=== PATIENT | female | born 1980 ===

== ENCOUNTER → 2018-10-10 | Outpatient (CLI) | payer OTHER ==
[~2018-10-10] MED LIST: NORG1TAB74 PO
== END ==
LOC: LAB 14:27
PROVIDERS: ATTEND Surgery
DX: Z02.9 Encounter for administrative examinations, unspecified (principal)

== ENCOUNTER 2018-10-26 01:49 | Day surgery (SDC) | payer OTHER ==
[~2018-10-26] VITALS: Ht 160 cm; Wt 58.1 kg
[~2018-10-26 01:49] MED LIST changes: +CHOL100059 PO; +MAGN100T PO; +MILK THISTLE PO; +PYRI100T57 PO; +ZINC50TA43 PO
[2018-10-26] MEDS ORDERED: FAMOTIDINE 20 MG TAB PO ONE (05:55)
[2018-10-26] MEDS ORDERED: ONDANSETRON 4 MG/2 ML VIAL ONE (08:00)
[2018-10-26] MEDS ORDERED: METOCLOPRAMIDE 10 MG/2 ML SDV ONE (08:00)
[2018-10-26] MEDS ORDERED: DEXAMETHASONE SOD 4 MG/ML VIAL ONE (08:00)
[2018-10-26] MEDS ORDERED: LIDOCAINE MPF 1% 5 ML VIAL ONE (08:00)
[2018-10-26] MEDS ORDERED: PROPOFOL EMUL(*) 10MG/ML 20 ML 20 ML ONE (08:00)
[2018-10-26] MEDS ORDERED: fentaNYL CITR 100 MCG/2 ML AMP ONE (08:09)
[2018-10-26 09:16] VITALS: BP 111/69
[2018-10-26] MEDS ORDERED: LIDOCAINE/SOD BICARB 8.4% SYR ID ONE (09:30)
[2018-10-26] MEDS ORDERED: ceFAZolin(*) 2GM/D5W 50ML 50 ML IVPB ONE (09:30)
[2018-10-26] MEDS ORDERED: NORMOSOL R SOLN(*) 1000 ML BAG 1,000 ML IV PRN (09:30)
[2018-10-26] MEDS ORDERED: ROPIVACAINE 0.5% 20 ML VIAL ONE (09:57)
[2018-10-26] MEDS ORDERED: LIDO/EPI 1% MDV 1:100,000 20ML INFIL ONE (09:57)
--- NOTE | 2018-10-26 11:10 | Short(Outpt) Discharge Summary ---
Discharge Summary Reason for Hosp/Final Diag: (1) Subcutaneous mass of back Status: Chronic Hospital Course & Plan: Subcutaneous mass excised from right lower back. Departure Discharge to: Home, Self Care Discharge Instructions Home Meds Active Scripts Norgestimate-Ethinyl Estradiol (SPRINTEC) 1 Each Tablet, 1 EACH PO DAILY, #30 TAB 11 Refills Prov:TAYLORJOSÉ MANUEL Woo MD 09/12/18 Reported Medications [Milk Thistle] No Conflict Check, 100 MG PO DAILY 10/23/18 Zinc Gluconate (ZINC) 50 Mg Tablet, 50 MG PO DAILY 10/23/18 Magnesium Amino Acid Chelate (MAGNESIUM) 100 Mg Tablet, 200 MG PO DAILY 10/23/18 Pyridoxine Hcl (VITAMIN B-6) 100 Mg Tablet, 100 MG PO DAILY 10/23/18 Cholecalciferol (Vitamin D3) (VITAMIN D3) 1,000 Unit Capsule, 1000 UNIT PO DAILY, CAPSULE 10/23/18 Follow up Referrals: General Surgery - 11/13/18 @ Surgery, General with JESSY SULLIVAN MD You have a follow up appointment scheduled with Dr. Sullivan on 11/13/18, at 9:15am. Diet: Regular Activity: As Tolerated Special Instructions: You may remove the white surgical dressing on 10/28/18, then you can shower. After showering, leave the incision open to air but leave the steristrips in place until they fall off on their own. Do not immerse the incision for 2 weeks. You may use ice, acetaminophen (Tylenol), and/or ibuprofen (motrin) for pain. JESSY SULLIVAN MD Oct 26, 2018 11:10
--- NOTE | 2018-10-26 11:14 | Post Operative Progress Note ---
Post Operative Progress Note Date: Oct 26, 2018 Time: 11:10 Surgeon: Juan M Dictation number: [id number] Anesthesia: LMA by Dr. Hernandez Pre-Op Diagnosis: Subcutaneous mass, right lower back Post-Op Diagnosis: INDERJIT Findings: C/W benign lipoma Procedure(s): Excision of subcutaneous mass from right lower back Specimen Removed:(May be N/A): Subcutaneous mass, right lower back Complications: None Fluids: See anesthesia record Estimated Blood Loss: Minimal Date OP Note Dictated: Oct 26, 2018 Time OP Note Dictated: 11:11 JESSY SULLIVAN MD Oct 26, 2018 11:14
[2018-10-26 11:45] VITALS: BP 121/65
[2018-10-26 11:57] VITALS: BP 120/58
[2018-10-26 11:58] VITALS: BP 130/82
--- NOTE | 2018-10-26 12:10 | NUR ---
1137 I WILL BE RESUMING CARE OF THIS PATIENT FROM PACU. SEE PACU NOTES 1139 PATIENT BEGAN EATING PUDDING AND IS TOLERATING THIS WELL 1157 BEGAN DOING ORTHOSTATICS WITH PATIENT. SHE DENIES ANY DIZZINESS OR LIGHTHEADEDNESS 1158 PATIENT BEGAN STANDING. SHE IS STABLE ON HER FEET 1201 PATIENT BEGAN GETTING DRESSED 1205 IV WAS DC'D WITH CATH INTACT 1210 PATIENT WAS TAKEN OUT AND WAS AMBULATORY ON DISCHARGE. SHE WAS ACCOMPANIED BY Venkatesh ROSS AND LILIAM. SHE HAS A SMALL AMOUNT OF BLEEDING ON HER PRIMAPORE DRESSING. SHE DENIES ANY PAIN OR NAUSEA. LUNGS ARE CLEAR. BOWEL SOUNDS ARE HYPERACTIVE BOWEL SOUNDS.
--- NOTE | 2018-10-26 12:41 | OPERATIVE REPORT 1 ---
EVENT DATE: October 26, 2018 SURGEON: Yon Mcgowan MD ANESTHESIOLOGIST: Jose Hernandez MD ANESTHESIA: LMA. PREOPERATIVE DIAGNOSIS Subcutaneous mass, right lower back. POSTOPERATIVE DIAGNOSIS Subcutaneous mass, right lower back. PROCEDURE PERFORMED Excision of subcutaneous mass from right lower back. ESTIMATED BLOOD LOSS Minimal. INDICATIONS This is a 38-year old female who presented to my office with a subcutaneous mass of the right lower back and she was requesting to have it removed. DESCRIPTION OF PROCEDURE Patient was brought to the operating room and placed supine on the operating table. LMA anesthesia was administered and she was placed in the left lateral decubitus position on the table. I had marked the skin overlying the mass with her confirmation as the correct operative site and then anesthetized the skin overlying the mass and then made a small incision over the mass and dissected to through the dermis to the subcutaneous fat. Identified the plane in which the mass resides and did mostly blunt dissection around the mass and used some electrocautery to divide the areolar tissue that was attaching it to the underlying muscle fascia. The mass was then removed from the wound and passed off the field. I then closed the subcutaneous fat with interrupted 3-0 Vicryl sutures. The skin was closed with running 4-0 Monocryl subcuticular suture. Skin was cleaned and dried and Steri-Strips applied followed by a sterile surgical dressing. The patient was then awakened and LMA removed. She was transferred to the recovery room in stable condition, having tolerated the procedure without any apparent problems. CATHLEEN
== END 2018-10-26 11:37 | disposition home or self-care (01) ==
LOC: OR 01:49
PROVIDERS: ATTEND Surgery
DX: D17.1 Benign lipomatous neoplasm of skin and subcutaneous tissue of trunk (principal)
CPT/HCPCS: 11403; 81025; 88305; J1100; J2001; J2405; J2704; J2765; J2795; J3010; J0690